=== PATIENT | male | born 1980 | race Caucasian/White ===

== ENCOUNTER 2018-08-04 15:22 | Outpatient (REF) | payer MEDICAID, SELFPAY ==
[2018-08-06 11:11] LABS: Syphilis Serology (RPR) Negative (Negative)
[2018-08-06 12:18] LABS: Hepatitis C Ab w Rflx HCV PCR Negative (NEGAT)
[2018-08-06 12:32] LABS: HIV-1/2 Ag & Ab Screen Negative (NEGAT)
[2018-08-06 15:25] LABS: Chlamydia Result Negative; GC Result Negative; Specimen Description URINE
== END 2018-08-04 15:42 ==
LOC: NCHCN 15:22
PROVIDERS: Visit Provider Specialist/Technologist Athletic Trainer
DX: Z11.3 Encounter for screening for infections with a predominantly sexual mode of transmission (principal); Z11.59 Encounter for screening for other viral diseases; Z11.4 Encounter for screening for human immunodeficiency virus [HIV]
CPT/HCPCS: 86803; 87389; 87491; 87591; 86592

== ENCOUNTER 2018-08-18 11:43 | Outpatient (REF) | payer MEDICAID, SELFPAY ==
[2018-08-18 21:04] LABS: Anion Gap 10.5 mmol/L (3-11); BUN 16 mg/dL (7-18); CO2 28.5 mmol/L (21.0-32.0); CREATININE 0.73 mg/dL (0.70-1.30); Calcium 9.9 mg/dL (8.5-10.1); Chloride 101 mmol/L (98-107); Glucose 79 mg/dL (70-100); Potassium 4.6 mmol/L (3.5-5.1); Sodium 140 mmol/L (136-145)
== END 2018-08-18 12:03 ==
LOC: NCHCN 11:43
PROVIDERS: PCP Physician Assistant Medical; Visit Provider Physician Assistant Medical
DX: R03.0 Elevated blood-pressure reading, without diagnosis of hypertension (principal)
CPT/HCPCS: 80048

== ENCOUNTER 2018-08-31 12:21 | Emergency (ER) | payer MEDICAID, SELFPAY ==
--- NOTE | 2018-08-31 12:31 | W.ED.GENAD ---
Discharge Plan Disposition Patient Disposition: HOME Condition: Good Discharge Details Chief Complaint: Burn Clinical Impression: Burn of hand Primary Care Provider: Reema More ED Provider: Theo Yanez Home Meds and New Rx's Prescriptions: New silver sulfadiazine [Silvadene] 1 % cream 1 applic TP BID Qty: 20 RF: 0 Discharge Instructions Instructions: Second Degree Burn (ED) Additional Instructions: Please apply the cream to the burned areas twice daily, bandage it and re-bandage it twice daily as well. If you notice any spreading redness, warmth, goopy discharge, fever, or chills please return immediately for reassessment. Please follow-up closely with your primary care provider in the next week for reassessment of the wound. If you notice any worsening of your symptoms, or any new symptoms such as vomiting, diarrhea, fever, chills, shortness of breath, chest pain, numbness, weakness, or fainting , please return immediately to the emergency department for reevaluation. Please follow up with your primary care provider as soon as possible for reassessment and reevaluation. As always, it was a pleasure participating in your medical care today. Referrals: Reema More PA [Primary Care Provider] - Medical Decision Making This is a pleasant 37-year-old male who is daphy-erdu-ieptnuif who is tetanus was updated in 2013 who presents with a burn over his right hand over the right hand over the thenar and hyperthenar eminence. No evidence of significant blister, bulla, or severe burn. Total surface area is notably less than 1%. It does not cross the creases of the fingers, he shows no signs of restriction of the hand or fingers with movement. Pain is controlled well with ibuprofen. Tetanus being updated no additional management is needed. Silvadene will be administered here, and he will be given a prescription for home use. The area was cleaned vigorously with a chlorhexidine scrub her. With no evidence of superficial cellulitis see no indication for additional antibiotics at this time. We discussed red flags which to return, as well as the importance of close follow-up in the next week with his PCP. I have extensively reviewed the treatment plan and discharge instructions with the patient. I have addressed all patient concerns at this time. The patient was made aware of what symptoms to monitor for that would warrant a return to the emergency department. Discussed the plan with the patient, they demonstrate verbal understanding and agreement with our assessment and plan at this time. Additionally the patient does have evidence of a split S1, which he was unaware of, he shows no signs of heart failure, syncope or other abnormalities. Recommend follow-up with his PCP on an outpatient basis for further evaluation. This may be chronic. HPI General Date/Time Provider Initiated Documentation: 08/31/18 12:23. HPI Narrative: This is a 37-year-old male with no significant past medical history except for on treated hypertension, whose tetanus is updated in 2013 who presents with complaint of burn to his right hand. He is right-hand dominant. Patient states that he was welding something when he grabbed a metal which was notably hot, and burned the palmar aspect of his hand over the thenar and hyperthenar eminence. He denies any discharge, pain has been slightly controlled with ibuprofen. He denies any other complaints of numbness tingling or weakness. No other complaints modifying factors at this time. Related Data Home Medications Medication Instructions Recorded Confirmed silver sulfadiazine [Silvadene] 1 applic TP BID #20 gm 08/31/18 Previous Rx's Medication Instructions Recorded silver sulfadiazine [Silvadene] 1 applic TP BID #20 gm 08/31/18 Allergies Allergy/AdvReac Type Severity Reaction Status Date / Time No Known Drug Allergies Allergy Unverified 07/22/13 10:28 Review of Systems Review of Systems All systems reviewed & are unremarkable except as noted in HPI and below PFSH Social History Drug use: Never Do you feel safe at home: Yes Do you feel safe in your relationship?: Yes Exam Narrative Exam Narrative: 1.Const: Well-nourished, Well-developed, appearing stated age 2.Eyes: PERRL, no conjunctival injection, and symmetrical lids. 3.ENT: Atraumatic external nose and ears. Moist MM. Neck: Symmetric, trachea midline, No thyromegaly. 4.CVS: +S1/S2,, there is a notable split S1. No murmurs or gallops. Peripheral pulses 2+ and equal in all extremities. Brisk capillary refill in all extremities. 5.RESP: Unlabored respiratory effort. Clear to auscultation bilaterally. No wheezes rales or rhonchi 6.GI: Soft, Nontender/Nondistended, No hepatosplenomegaly. No guarding or rebound. 7.MSK: Normocephalic/Atraumatic, Extremities w/o deformity or ttp No cyanosis or clubbing, Normal movement of all extremities 8.Skin: Warm, Dry. Patient's right hand demonstrates evidence of second-degree burn over the thenar eminence and hyperthenar eminence on the palmar aspect. The thenar eminence demonstrates a component of second-degree burn roughly 4 cm long and 1 cm wide, with similar margins for the hyperthenar eminence. No evidence of active discharge, bleeding, or other significant abnormality. Patient is able to flex and extend all fingers. Intact sensation throughout all fingers, including two-point discrimination. 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 Sensation grossly intact, no focal neurologic deficits. 10.Psych: (AAO) x3. Appropriate mood and affect
[2018-08-31 12:34] VITALS: BP 170/110; PULSE 82; RESP 18; TEMP 36.7; O2SAT 100
[2018-08-31] MEDS: Silver sulfaDIAZINE 1% 25 GM TUBE TP (12:39)
[2018-08-31 12:49] VITALS: BP 170/117
== END 2018-08-31 12:48 | disposition home or self-care (01) ==
LOC: ER 12:52
PROVIDERS: Emergency Provider Student in an Organized Health Care Education/Training Program; PCP Physician Assistant Medical
DX: T23.251A Burn of second degree of right palm, initial encounter (principal); X19.XXXA Contact with other heat and hot substances, initial encounter; I10 Essential (primary) hypertension
CPT/HCPCS: 16020

== ENCOUNTER 2018-12-17 00:56 | Outpatient (CLI) | payer MEDICAID, SELFPAY ==
--- NOTE | 2018-12-17 13:50 | MERGE_ITS ---
*[facility]* *[facility]* [address] [place] [address] Date of study: 12/17/2018 Transthoracic Echocardiography M-mode, complete 2D, complete spectral Doppler, and color Doppler *STUDY CONCLUSIONS* Summary: 1. Left ventricle: The cavity size was normal. There was mild asymmetric hypertrophy of the septum. Systolic function was normal. The estimated ejection fraction was 55-60%. Wall motion was normal; there were no regional wall motion abnormalities. 2. Right ventricle: The cavity size was normal. Wall thickness was normal. Systolic function was normal. *PATIENT PRESENTATION* Height: 172.7cm (68in ) S/D Pressure: 142 / 89 Weight: 81.6kg (179.6lb ) BSA: 2m^2 Test start time: 02:00 PM. Test stop time: 03:00 PM. PERFORMING Unknown PERFORMING [facility] CONSULTING Reema More Jeniane L REFERRING Reema More EGG BU[employer]ER Tricia Chowdhury RT (R)(CT), [facility] *PROCEDURE DATA* Procedure information: The patient was identified by two identifiers. This study was interpreted by [facility]. Pertinent images and digital data are archived for permanent storage and are available for subsequent review. No prior study was available for comparison. Study status: Routine. Transthoracic echocardiography. M-mode, complete 2D, complete spectral Doppler, and color Doppler. A Transthoracic Echocardiogram was performed. Scanning was performed from the parasternal, apical, subcostal, and suprasternal notch acoustic windows. Images were obtained using an [id number] cardiac ultrasound machine. Image quality was adequate. Study completion: The patient tolerated the procedure well. There were no complications. History: PMH: Abnormal heart sounds r01.2. *CARDIAC ANATOMY* Left ventricle: The cavity size was normal. There was mild asymmetric hypertrophy of the septum. Systolic function was normal. The estimated ejection fraction was 55-60%. Wall motion was normal; there were no regional wall motion abnormalities. Diastolic parameters were normal. Aortic valve: Trileaflet; normal thickness leaflets. Mobility was not restricted. Doppler: Transvalvular velocity was within the normal range. There was no stenosis. There was no significant regurgitation. VTI ratio of LVOT to aortic valve: 0.79. Valve area (VTI): 2.7cm^2. Indexed valve area (VTI): 1.3cm^2/m^2. Peak velocity ratio of LVOT to aortic valve: 0.83. Valve area (Vmax): 2.8cm^2. Indexed valve area (Vmax): 1.4cm^2/m^2. Mean velocity ratio of LVOT to aortic valve: 0.77. Valve area (Vmean): 2.6cm^2. Indexed valve area (Vmean): 1.3cm^2/m^2. Mean gradient (S): 3.9mm Hg. Peak gradient (S): 6.1mm Hg. Aorta: Aortic root: The aortic root was normal in size. Ascending aorta: The ascending aorta was normal in size. Mitral valve: Structurally normal valve. Mobility was not restricted. Doppler: Transvalvular velocity was within the normal range. There was no evidence for stenosis. There was no significant regurgitation. Valve area by pressure half-time: 4.2cm^2. Indexed valve area by pressure half-time: 2.1cm^2/m^2. Peak gradient (D): 2.3mm Hg. Left atrium: The atrium was normal in size. Right ventricle: The cavity size was normal. Wall thickness was normal. Systolic function was normal. Pulmonic valve: Structurally normal valve. Doppler: Transvalvular velocity was within the normal range. There was no evidence for stenosis. There was no significant regurgitation. Tricuspid valve: Structurally normal valve. Doppler: Transvalvular velocity was within the normal range. There was no evidence for stenosis. There was trivial regurgitation. Pulmonary artery: Pulmonary systolic pressure was within the normal range. Right atrium: The atrium was normal in size. Pericardium: There was no pericardial effusion. Systemic veins: Inferior vena cava: Well visualized. The vessel was patent and normal in size. The respirophasic diameter changes were in the normal range (greater than or equal to 50%). Baseline ECG: Normal sinus rhythm. Measurements Left ventricle Value Reference LV ID, ED, PLAX 4.4 cm 3.5 - 6.0 LV PW thickness, ED, PLAX 1.1 cm LV end-diastolic volume, 1-p A2C 72 ml LV ejection fraction, 1-p A2C 58 % LV end-diastolic volume, 1-p A4C 83 ml LV ejection fraction, 1-p A4C 55 % LV e', lateral 0.144 m/sec LV E/e', lateral 5 LV e', medial 0.085 m/sec LV E/e', medial 9 LV e', average 0.114 m/sec LV E/e', average 7 Ventricular septum Value Reference IVS thickness, ED, PLAX 1.3 cm LVOT Value Reference LVOT ID, A-P 2.1 cm LVOT area 3.4 cm^2 LVOT peak velocity, S 1.03 m/sec LVOT mean velocity, S 0.73 m/sec LVOT VTI, S 19.8 cm LVOT peak gradient, S 4.2 mm Hg LVOT mean gradient, S 2.4 mm Hg Stroke volume (SV), LVOT DP 67 ml Stroke index (SV/bsa), LVOT DP 33 ml/m^2 Aortic valve Value Reference Aortic valve peak velocity, S 1.2 m/sec Aortic valve mean velocity, S 1 m/sec Aortic valve VTI, S 25.0 cm Aortic mean gradient, S 3.9 mm Hg Aortic peak gradient, S 6.1 mm Hg VTI ratio, LVOT/AV 0.79 Aortic valve area, VTI 2.7 cm^2 Velocity ratio, peak, LVOT/AV 0.83 Aortic valve area, peak velocity 2.8 cm^2 Velocity ratio, mean, LVOT/AV 0.77 Aortic valve area, mean velocity 2.6 cm^2 Aortic valve area/bsa, mean velocity 1.3 cm^2/m^2 Aorta Value Reference Aortic root ID, ED 3.4 cm Ascending aorta ID, A-P, S 3.0 cm Left atrium Value Reference LA ID, A-P, ES 3.0 cm LA ID/bsa, A-P 1.5 cm/m^2 <=2.2 LA volume/bsa, ES, 1-p A4C 23 ml/m^2 LA volume, ES, 2-p 33 ml LA volume/bsa, ES, 2-p 16 ml/m^2 LA/aortic root ratio 0.89 Mitral valve Value Reference Mitral E-wave peak velocity 0.76 m/sec Mitral A-wave peak velocity 0.7 m/sec Mitral deceleration time 182 ms 150 - 230 Mitral pressure half-time 53 ms Mitral peak gradient, D 2.3 mm Hg Mitral E/A ratio, peak 1.07 Mitral valve area, PHT, DP 4.2 cm^2 Pulmonary veins Value Reference Pulmonary vein peak velocity, S 0.49 m/sec Pulmonary vein peak velocity, D 0.48 m/sec Pulmonary vein velocity ratio, peak, 1.02 S/D Pulmonary vein A-wave reversal peak 0.33 m/sec velocity Right atrium Value Reference RA area, ES, A4C 11.6 cm^2 8.3 - 19.5 Legend: (L) and (H) fern values outside specified reference range. I have personally reviewed the images and have reviewed and edited the reported findings. Electronically signed by Arnol Hahn 12/18/2018 07:38
== END 2018-12-17 01:16 ==
PROVIDERS: PCP Physician Assistant Medical; Visit Provider Physician Assistant Medical
DX: R01.2 Other cardiac sounds (principal)
CPT/HCPCS: 93306

== ENCOUNTER 2018-12-19 11:54 | Outpatient (REF) | payer MEDICAID, SELFPAY ==
[2018-12-19 18:55] LABS: Anion Gap 10.2 mmol/L (3-11); BUN 20 mg/dL (7-18); CO2 25.8 mmol/L (21.0-32.0); Calcium 9.2 mg/dL (8.5-10.1); Chloride 104 mmol/L (98-107); Glucose 72 mg/dL (70-100); Potassium 4.9 mmol/L (3.5-5.1); Sodium 140 mmol/L (136-145)
== END 2018-12-19 12:14 ==
LOC: NCHCN 11:54
PROVIDERS: PCP Physician Assistant Medical; Visit Provider Physician Assistant Medical
DX: I10 Essential (primary) hypertension (principal)
CPT/HCPCS: 80048

== ENCOUNTER 2020-01-08 14:09 | Outpatient (REF) | payer MEDICAID, SELFPAY ==
[2020-01-08 20:04] LABS: ALT 36 U/L (16-63); AST 17 U/L (15-37); Albumin 4.3 g/dL (3.4-5.0); Alkaline Phosphatase 66 U/L (46-116); Anion Gap 9.6 mmol/L (3-11); BUN 27 mg/dL (7-18); Bilirubin, Total 0.4 mg/dL (0.2-1.0); CO2 27.4 mmol/L (21.0-32.0); Calcium 9.7 mg/dL (8.5-10.1); Chloride 100 mmol/L (98-107); Glucose 71 mg/dL (74-106); Potassium 4.7 mmol/L (3.5-5.1); Sodium 137 mmol/L (136-145); Total Protein 7.4 g/dL (6.4-8.2)
== END 2020-01-08 14:29 ==
LOC: NCHCN 14:09
PROVIDERS: PCP Physician Assistant Medical; Visit Provider Physician Assistant Medical
DX: I10 Essential (primary) hypertension (principal)
CPT/HCPCS: 80053

== ENCOUNTER 2021-05-09 14:29 | Outpatient (REF) | payer MEDICAID, SELFPAY ==
[2021-05-09 13:06] LABS: ALT 56 U/L (16-63); AST 25 U/L (15-37); Alkaline Phosphatase 66 U/L (46-116); Anion Gap 7.1 mmol/L (3-11); BUN 17 mg/dL (7-18); Bilirubin, Total 0.4 mg/dL (0.2-1.0); CO2 29.9 mmol/L (21.0-32.0); CREATININE 0.9 mg/dL (0.70-1.30); Calcium 9.5 mg/dL (8.5-10.1); Calculated LDL 108 mg/dL (<100); Chloride 101 mmol/L (98-107); Cholesterol 212 mg/dL (<200); Glucose 90 mg/dL (74-106); HDL Cholesterol 57 mg/dL (40-60); Potassium 4.8 mmol/L (3.5-5.1); Sodium 138 mmol/L (136-145); Triglyceride 237 mg/dL (<150)
== END 2021-05-09 14:30 | disposition home or self-care (01) ==
LOC: NCHCN 14:29
PROVIDERS: PCP Physician Assistant Medical; Visit Provider Physician Assistant Medical
DX: I10 Essential (primary) hypertension (principal)
CPT/HCPCS: 80053; 80061

== ENCOUNTER 2022-06-19 15:48 | Outpatient (REF) | payer MEDICAID, SELFPAY ==
[2022-06-19 15:58] LABS: ALT 49 U/L (16-63); AST 24 U/L (15-37); Albumin 4.3 g/dL (3.4-5.0); Alkaline Phosphatase 68 U/L (46-116); Anion Gap 7.6 mmol/L (3-11); BUN 17 mg/dL (7-18); Bilirubin, Total 0.6 mg/dL (0.2-1.0); CO2 27.4 mmol/L (21.0-32.0); Calcium 9.6 mg/dL (8.5-10.1); Chloride 102 mmol/L (98-107); Estimated GFR 96.97 (mL/min/1.73m2); Glucose 88 mg/dL (74-106); Potassium 4.4 mmol/L (3.5-5.1); Sodium 137 mmol/L (136-145); Total Protein 7.8 g/dL (6.4-8.2)
== END 2022-06-19 15:49 | disposition home or self-care (01) ==
LOC: NCHCN 15:48
PROVIDERS: PCP Physician Assistant Medical; Visit Provider Physician Assistant Medical
DX: I10 Essential (primary) hypertension (principal)
CPT/HCPCS: 80053

== ENCOUNTER 2022-11-20 13:07 | Outpatient (CLI) | payer MEDICAID, SELFPAY ==
--- NOTE | 2022-11-20 15:07 | DI.RAD_ITS ---
Exam(s) XR LUMBAR SPINE COMPLETE EXAM: XR LUMBAR SPINE COMPLETE CLINICAL HISTORY: BACK PAIN, M54.9. TECHNIQUE: 2D digital imaging was performed. COMPARISON: No exams were available for comparison FINDINGS: Five views. No evidence of fracture, listhesis, nor pars defects. Mild disc space narrowing at L5-S1 level noted as well as L1-2. Minimal facet joint degenerative changes. SI joints appear unremarkable. No scol iosis. No osseous lesions. IMPRESSION: Disc space narrowing L5-S1. There are short AP dimensions of the pedicles noted in the lower lumbar spine. May indicate an element of spinal canal stenosis. DATA REPOSITORY: RADIATION DOSE DELIVERED:
== END 2022-11-20 13:27 ==
LOC: DI 13:07
PROVIDERS: PCP Physician Assistant Medical; Visit Provider Physician Assistant Medical
DX: M54.9 Dorsalgia, unspecified (principal); M51.36 Other intervertebral disc degeneration, lumbar region
CPT/HCPCS: 72110

== ENCOUNTER → 2022-12-10 03:03 | Outpatient (CLI) | payer MEDICAID, SELFPAY ==
--- NOTE | 2022-12-10 13:00 | DI.MRI_ITS ---
Exam(s) MR LUMBAR SPINE WO EXAM: MR LUMBAR SPINE WO CLINICAL HISTORY: BACK PAIN, M54.9. TECHNIQUE: Multiplanar multisequence MRI of the Lumbar spine was performed. COMPARISON: CR XR LUMBAR SPINE COMPLETE from 11/20/2022 FINDINGS: Conus medullaris is at normal level. There is no evidence of conus mass nor subjacent clumping of in trathecal nerve roots to suggest arachnoiditis. The distal thecal sac appears unremarkable.There is no evidence of Tarlov intrasacral cysts nor other significant findings within the sacral canal Bones:There is a benign intraosseous hemangioma noted slightly left of center in the L3 vertebral bod y. There are multilevel nonacute appearing Schmorl's node invagination is at and above L4 level. There is no associated bone edema at these levels. With respect to the individual levels... T12-L1: Unremarkable L1-2: Normal disc height and signal. There is asymmetric right of center annular bulging which slight ly impresses the thecal sac but does not result in significant central spinal canal stenosis at this level. This does not extend into the exiting neural foramen and the neural foramen are patent bilate rally at this level with no evidence of foraminal stenosis. No significant facet arthropathy at this level. L2-3: Normal disc height. No disc herniation nor central canal stenosis.No foraminal stenosis.No face t arthropathy. L3-4: Normal disc height. Left-sided osteophytes evident at this level. There is mildly asymmetric annular bulging on the right side at this level but no prominent disc herniation. Central canal dime nsions are lower normal. There is no prominent foraminal stenosis on either side at this level. No prominent facet arthropathy at this level. L4-5: This level exhibits normal disc height and signal. Central canal dimensions are lower normal. At the level of the exiting right neural foramen there is a small focus of signal abnormality consis tent with small radial tear in the annulus at this level. There is mild annular bulging in the floor of the exiting right neural foramen at this level but without prominent foraminal stenosis. Exiting left neural foramen at this level unremarkable. Central canal dimensions are lower normal. There a re moderate degenerative changes in both facet joints at this level. L5-S1: Relatively preserved disc height. However, posteriorly there is annular bulging which extends posteriorly 3 mm and with a superimposed right paracentral disc protrusion which contacts the latera l recess nerve roots at this level. The disc protrusion does not extend into the exiting neural fora nahun and there is no foraminal stenosis on either side at this level. Central osseous canal dimensio ns are lower normal. Facet joints appear unremarkable at this level. Soft tissues: paraspinal soft tissues appear unremarkable. IMPRESSION: 1. Multilevel findings as described above at L3-4, L4-5, and L5-S1 levels. 2. Despite the multilevel findings there is no prominent central spinal canal stenosis nor prominent foraminal stenosis. 3. Facet arthropathy noted at L4-5 level. No listhesis. DATA REPOSITORY:
== END ==
PROVIDERS: PCP Physician Assistant Medical; Visit Provider Physician Assistant Medical
DX: M47.816 Spondylosis without myelopathy or radiculopathy, lumbar region (principal)
CPT/HCPCS: 72148